=== PATIENT | female | born 1985 | race Caucasian/White ===

== ENCOUNTER 2016-08-08 16:00 | Emergency (ER) | payer SELFPAY ==
[~2016-08-08] VITALS: Ht 160 cm; Wt 62.1 kg
[~2016-08-08 16:00] MED LIST: ACHD5005 PO; BENZ56AE TP; CEPH500C PO; CODE-54 PO; DAPS25TA2 PO; DCS100C PO; FRS325T PO; IBP600T1 PO; NIFE-12 PO; NITR-65 PO; PREN1TAB19 PO; SULF-222 PO; TRAM50TA2 PO
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
[2016-08-08 16:22] LABS: BILIRUBIN,URINE NEGATIVE (NEGATIVE); KETONES,URINE NEGATIVE (NEGATIVE); LEUKOCYTE ESTERASE ,URINE 1+ (NEGATIVE); NITRITE,URINE NEGATIVE (NEGATIVE); PH,URINE 7 (5-9); PROTEIN,URINE NEGATIVE (NEGATIVE); UROBILINOGEN,URINE NORMAL (NORMAL)
[2016-08-08] MEDS ORDERED: NAPR500T PO (16:45)
[2016-08-08] MEDS ORDERED: CYCL5TAB PO (16:46)
[2016-08-08 16:48] LABS: WBC,URINE 0-2 /HPF
[2016-08-08 16:49] LABS: SQUAMOUS EPITHELIAL CELL,UR 0-2 /HPF
[2016-08-08 16:58] VITALS: BP 140/90
== END 2016-08-08 16:58 | disposition home or self-care (01) ==
LOC: EDUNIT# 16:00 → ER 16:02
DX: M54.5 Low back pain (principal)
CPT/HCPCS: 80306; 81000; 84703; 99282

== ENCOUNTER 2016-10-09 11:00 | Emergency (ER) | payer MEDICAID, OTHER ==
[~2016-10-09] VITALS: Ht 160 cm; Wt 62.1 kg
[~2016-10-09 11:00] MED LIST changes: +CYCL5TAB PO; +NAPR500T PO
--- NOTE | 2016-10-09 11:39 | ED Back Pain ---
General Chief Complaint: Back Problems Stated Complaint: BACK PAIN Nursing Triage Note: pt reports low back pain that "locked up" for 4 hours. she reports taking ibuprofen and aspirin for the pain with no improvement. she denies any problems with voiding or bm. Nursing Sepsis Screen: No Definite Risk Source of Information: Patient Exam Limitations: No Limitations History of Present Illness Time Seen by Provider: 11:38 Initial Comments To ER with pain in the midline low back that radiates around to the abdomen and up her back causing her headache and down the right leg intermittently. No loss of bowel or bladder control. No saddle anesthesia or hypoesthesia. Denies possibility of . Location: Lumbar Spine Timing/Duration: 4-6 Hours Severity: Moderate Pain/Injury Location: Back Associated Symptoms: denies symptoms Allergies and Home Medications Allergies Coded Allergies: No Known Drug Allergies (Unverified , 08/08/16) Home Medications Cyclobenzaprine HCl 5 Mg Tablet, 5 MG PO TID PRN for PAIN-MILD TO MODERATE, #20 Prescribed by: RODRÍGUEZ ACOSTA on 08/08/16 1646 Naproxen 500 Mg Tablet, 500 MG PO BID PRN for PAIN-MILD TO MODERATE, #30 Prescribed by: RODRÍGUEZ ACOSTA on 08/08/16 1645 Constitutional: see HPI, No chills, No fever EENTM: see HPI Respiratory: no symptoms reported Cardiovascular: no symptoms reported Genitourinary: no symptoms reported Musculoskeletal: see HPI, back pain Skin: no symptoms reported Psychiatric/Neurological: No Symptoms Reported Past Opwqcvv-Tjfdey-Kkiykv Hx Patient Social History Alcohol Use: Denies Use Recreational Drug Use: Yes Smoking Status: Current Everyday Smoker Type Used: Cigarettes 2nd Hand Smoke Exposure: No Recent Foreign Travel: No Contact w/Someone Who Travel: No Recent Infectious Disease Expo: No Recent Hopitalizations: No Immunizations Up To Date Tetanus Booster (TDap): Less than 5yrs PED Vaccines UTD: Yes Surgeries HX Surgeries: Yes (D & C) Surgeries: Gallbladder Respiratory Hx Respiratory Disorders: No Cardiovascular Hx Cardiac Disorders: No Neurological Hx Neurological Disorders: No Reproductive System Hx Reproductive Disorders: No Sexually Transmitted Disease: No HIV/AIDS: No Female Reproductive Disorders: Denies Genitourinary Hx Genitourinary Disorders: Yes Genitourinary Disorders: Kidney Stones Gastrointestinal Hx Gastrointestinal Disorders: No Musculoskeletal Hx Musculoskeletal Disorders: Yes Musculoskeletal Disorders: Back Injury Endocrine Hx Endocrine Disorders: No HEENT HX ENT Disorders: No Loss of Vision: Denies Hearing Impairment: Denies Cancer Hx Cancer: No Psychosocial Hx Psychiatric Problems: No Integumentary HX Skin/Integumentary Disorder: No Blood Transfusions Hx Blood Disorders: No Adverse Reaction to a Blood Tr: No Family Medical History Significant Family History: No Pertinent Family Hx Physical Exam Vital Signs Vital Sign - Last 12Hours 10/09/16 11:20 Temp 97.4 Pulse 74 Resp 16 B/P (MAP) 114/68 Pulse Ox 98 O2 Delivery Room Air Capillary Refill : Less Than 3 Seconds General Appearance: No Apparent Distress, WD/WN HEENT: PERRL/EOMI, TMs Normal Neck: Full Range of Motion, Normal Inspection Respiratory: Normal Breath Sounds, No Accessory Muscle Use, No Respiratory Distress Gastrointestinal: Normal Bowel Sounds, Non Tender, Soft Extremity: Normal Capillary Refill, Normal Inspection Neurologic/Psychiatric: Alert, Oriented x3, No Motor/Sensory Deficits Skin: Normal Color, Warm/Dry Progress/Results/Core Measures Results/Orders Lab Results Laboratory Tests Test 10/09/16 11:37 Range/Units Urine Color YELLOW Urine Clarity CLEAR Urine pH 7 5-9 Urine Specific [place] 1.010 L 1.016-1.022 Urine Protein NEGATIVE NEGATIVE Urine Glucose (UA) NEGATIVE NEGATIVE Urine Ketones NEGATIVE NEGATIVE Urine Nitrite NEGATIVE NEGATIVE Urine Bilirubin NEGATIVE NEGATIVE Urine Urobilinogen NORMAL NORMAL MG/DL Urine Leukocyte Esterase 1+ H NEGATIVE Urine RBC (Auto) NEGATIVE NEGATIVE Urine RBC NONE /HPF Urine WBC 2-5 /HPF Urine Squamous Epithelial Cells 2-5 /HPF Urine Crystals NONE /LPF Urine Bacteria TRACE /HPF Urine Casts NONE /LPF Urine Mucus NEGATIVE /LPF Urine Culture Indicated YES My Orders Orders - RODRÍGUEZ ACOSTA APRN Ua Culture If Indicated (10/09/16 11:05) Urine Bedside (10/09/16 11:05) Drug Screen Stat (Urine) (10/09/16 11:05) Urine Culture (10/09/16 11:37) Ketorolac Injection (Toradol Injection) (10/09/16 12:00) Orphenadrine Injection (Norflex Injectio (10/09/16 12:00) Vital Signs/I&O Vital Sign - Last 12Hours 10/09/16 11:20 Temp 97.4 Pulse 74 Resp 16 B/P (MAP) 114/68 Pulse Ox 98 O2 Delivery Room Air Blood Pressure Mean: 83 Departure Impression Impression: Primary Impression: Low back pain Disposition: 01 HOME, SELF-CARE Condition: Stable Departure-Patient Inst. Decision time for Depature: 11:54 Referrals: NO,LOCAL PHYSICIAN (PCP/Family) Primary Care Physician Patient Instructions: Low Back Pain (DC) Add. Discharge Instructions: 1. Return to ER for any concerns 2. Steroids and muscle relaxers as directed 3. All discharge instructions reviewed with patient and/or family. Voiced understanding. Scripts Cyclobenzaprine HCl (Cyclobenzaprine HCl) 5 Mg Tablet 5 MG PO TID Y for PAIN-MILD TO MODERATE, #20 TAB Prov: RODRÍGUEZ ACOSTA APRN 10/09/16 Prednisone (Prednisone) 20 Mg Tab 40 MG PO DAILY, #8 TAB Prov: RODRÍGUEZ ACOSTA APRN 10/09/16 RODRÍGUEZ ACOSTA APRN Oct 09, 2016 11:39
[2016-10-09 11:43] LABS: BILIRUBIN,URINE NEGATIVE (NEGATIVE); KETONES,URINE NEGATIVE (NEGATIVE); LEUKOCYTE ESTERASE ,URINE 1+ (NEGATIVE); NITRITE,URINE NEGATIVE (NEGATIVE); PH,URINE 7 (5-9); PROTEIN,URINE NEGATIVE (NEGATIVE); UROBILINOGEN,URINE NORMAL (NORMAL)
[2016-10-09] MEDS ORDERED: PRD20T PO (11:55)
[2016-10-09] MEDS ORDERED: CYCL5TAB PO (11:55)
[2016-10-09] MEDS ORDERED: ORPHENADRINE 60 MG/2 ML (NORFLEX) AMP IM ONE (12:00)
[2016-10-09] MEDS ORDERED: KETOROLAC 60 MG/2 ML VIAL IM ONE (12:00)
[2016-10-09 12:05] VITALS: BP 114/68
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
== END 2016-10-09 12:05 | disposition home or self-care (01) ==
LOC: EDUNIT# 11:00 → ER 11:04
DX: M54.5 Low back pain (principal); F17.210 Nicotine dependence, cigarettes, uncomplicated; Z87.442 Personal history of urinary calculi
CPT/HCPCS: 80306; 81000; 84703; 87088; 96372; 99282

== ENCOUNTER → 2016-11-13 | Outpatient (CLI) | payer MEDICAID ==
[~2016-11-13] MED LIST changes: +PRD20T PO
--- NOTE | 2016-11-13 17:39 | Diagnostic Imaging Report ---
Transabdominal and transvaginal pelvic ultrasound. INDICATION: Abnormal uterine bleeding. FINDINGS: The uterus is 7.5 x 4.5 x 4.6 cm. The endometrial stripe is 0.7 cm in thickness. There is no focal myometrial lesion identified. The right ovary is 3.5 x 2.6 x 3.1 cm. The left ovary is 3.3 x 1.3 x 1.4 cm. There is a hemorrhagic corpus luteum cyst suggested in the right ovary measuring 2.3 cm. There are arterial and venous waveforms noted in both ovaries. No significant free fluid in the pelvis. IMPRESSION: Findings suggestive of a 2.3 cm hemorrhagic corpus luteum cyst. Dictated by: Dictated on workstation # [id number]
== END ==
LOC: RAD 13:49
PROVIDERS: ATTEND Obstetrics & Gynecology
DX: N83.11 Corpus luteum cyst of right ovary (principal)
CPT/HCPCS: 76830; 76856